=== PATIENT | female | born 1955 | race Caucasian/White ===

== ENCOUNTER 2018-02-09 15:30 | Inpatient (IN) | payer OTHER ==
[~2018-02-09] VITALS: Ht 175.3 cm; Wt 51.7 kg
[2018-02-09] MEDS ORDERED: CRESTOR20 MG (15:38)
[2018-02-09] MEDS ORDERED: SYNTHROID50 MCG (15:38)
== END 2018-02-16 18:52 | disposition home or self-care (01) | DRG 690 ==
LOC: ER 15:30 → MEDI 19:13 → MEDJ 19:13 → MEDI 20:13
PROC: BW25Y0Z Computerized Tomography (CT Scan) of Chest, Abdomen and Pelvis using Other Contrast, Unenhanced and Enhanced (ICD-10-PCS; principal; 2018-02-10)
DX: N39.0 Urinary tract infection, site not specified (principal); B96.29 Other Escherichia coli [E. coli] as the cause of diseases classified elsewhere; Z16.12 Extended spectrum beta lactamase (ESBL) resistance; E03.8 Other specified hypothyroidism; E78.49 Other hyperlipidemia